=== PATIENT | female | born 1950 | race Caucasian/White ===

== ENCOUNTER 2016-11-06 07:59 | Inpatient (IN) | payer BC ==
[2016-10-16 11:28] VITALS: BMI 32.6
[2016-10-16 15:26] VITALS: BP_SYST 130; RESP 20; TEMP 99
[2016-11-06] VITALS (24 sets, daily range): BP systolic 112–177; RESP 13–20; TEMP 97.2–99.1; Ht 167.6 cm; Wt 80.7 kg
[~2016-11-06] VITALS: Ht 167.6 cm; Wt 80.7 kg
[2016-11-06] MEDS ORDERED: ROPIVACAINE 0.5% 139 MG, EPINEPHrine 1:1,000 0.2 MG, KETOROLAC INJ 30 MG, MORPHINE 10 MG SUBQ ONE ×4 (08:10)
[2016-11-06] MEDS ORDERED: CEFAZOLIN 2,000 MG in SODIUM CHLORIDE 0.9% 100 ML IV ONE (08:10)
[2016-11-06] MEDS ORDERED: LACT RINGERS 1,000 ML IV SCH ×2 (08:40→12:05)
[2016-11-06] MEDS ORDERED: MIDAZOLAM 2 MG/2 ML INJ IV ONE ×2 (08:40→10:15)
[2016-11-06] MEDS ORDERED: FAMOTIDINE 20 MG INJ IV ONE (08:40)
[2016-11-06] MEDS ORDERED: METOCLOPRAMIDE 10 MG/2 ML VIAL IV PUSH ONE (08:40)
[2016-11-06] MEDS ORDERED: GLYCOPYRROLATE 0.2 MG/ML VIAL IV ONE ×2 (08:40→13:42)
[2016-11-06] MEDS ORDERED: LIDOCAINE 1% BUFFERED 1 ML SYR INTRADERM PRN (08:40)
[2016-11-06] MEDS ORDERED: MEPERIDINE 25 MG/ML IV ONE (08:40)
[2016-11-06] MEDS ORDERED: MIDAZOLAM 2 MG/2 ML INJ ONE (10:03)
[2016-11-06] MEDS ORDERED: BUPIVACA/EPI 0.5% 50ML NERVEBLOCK ONE (11:12)
[2016-11-06] MEDS ORDERED: MEPERIDINE 25 MG/ML IV PRN (11:45)
[2016-11-06] MEDS ORDERED: ONDANSETRON 4 MG VIAL IV PRN ×2 (11:45→12:05)
[2016-11-06] MEDS ORDERED: MORPHINE 2 MG/ML SYR IV PRN ×2 (11:45→12:05)
[2016-11-06] MEDS ORDERED: ACETAMINOPHEN 1,000 MG/100 ML IV ONE ×2 (11:45→13:42)
[2016-11-06] MEDS ORDERED: MORPHINE 4 MG/ML SYR IV PRN ×2 (11:45→12:05)
[2016-11-06] MEDS ORDERED: OXYCODONE 5 MG TAB PO PRN (11:45)
[2016-11-06] MEDS ORDERED: ONDANSETRON 4 MG TAB PO PRN (12:05)
[2016-11-06] MEDS ORDERED: DEXTROSE 50% SYRINGE 50 ML IV PRN (12:05)
[2016-11-06] MEDS ORDERED: GLUCAGON 1 MG VIAL IM PRN (12:05)
[2016-11-06] MEDS ORDERED: SALINE FLUSH 10 ML FLUSH PRN (12:05)
[2016-11-06] MEDS ORDERED: MAG HYDROX 30 ML UDC PO PRN (12:05)
[2016-11-06] MEDS ORDERED: ZOLPIDEM 5 MG TAB PO PRN (12:05)
[2016-11-06] MEDS: DILAUDID 1 MG/ML AMP IV PRN ×2 (12:22→12:37)
[2016-11-06] MEDS ORDERED: NEOSTIGMINE 10 MG/10 ML VIAL IV ONE (13:42)
[2016-11-06] MEDS ORDERED: PROPOFOL 20 ML VIAL IV ONE (13:42)
[2016-11-06] MEDS ORDERED: ROCURONIUM 50 MG VIAL IV ONE (13:42)
[2016-11-06] MEDS ORDERED: ESMOLOL 100 MG/10 ML VL IV ONE (13:42)
[2016-11-06] MEDS ORDERED: LIDOCAINE 2% SYR 5 ML IV ONE (13:42)
[2016-11-06] MEDS ORDERED: FENTANYL 100 MCG/2 ML AMP IV ONE (13:42)
[2016-11-06] MEDS ORDERED: ONDANSETRON 4 MG VIAL IV PUSH ONE (13:42)
[2016-11-06] MEDS ORDERED: DEXAMETHASONE 4 MG/ML VIAL IV ONE (13:42)
[2016-11-06] MEDS ORDERED: BACITRACIN 50,000 UNITS INJ IRRIG ONE (13:49)
[2016-11-06] MEDS: KETOROLAC 30 MG/ML VIAL IV PRN (15:18)
[2016-11-06] MEDS: GABAPENTIN 300 MG CAP PO SCH ×2 (16:51→20:39)
[2016-11-06] MEDS: CEFAZOLIN 2,000 MG in SODIUM CHLORIDE 0.9% 100 ML IV SCH ×2 (16:52→22:10)
[2016-11-06] MEDS: SALINE FLUSH 10 ML FLUSH SCH (19:08)
[2016-11-06] MEDS: SENNA 8.6 MG TAB PO SCH (20:39)
[2016-11-06] MEDS: DOCUSATE SOD 100 MG CAP PO SCH (20:39)
[2016-11-06] MEDS: PANTOPRAZOLE 40 MG TAB PO SCH (20:39)
[2016-11-06] MEDS ORDERED: DOCUSATE SOD 100 MG CAP PO SCH (21:00)
[2016-11-07] MEDS: KETOROLAC 30 MG/ML VIAL IV PRN ×4 (02:36→22:38)
[2016-11-07 03:00] VITALS: BP_SYST 115; RESP 16; TEMP 99.1
[2016-11-07] MEDS: CEFAZOLIN 2,000 MG in SODIUM CHLORIDE 0.9% 100 ML IV SCH ×2 (03:55→09:28)
[2016-11-07] MEDS: FONDAPARINUX 2.5 MG SYR SUBQ SCH (05:17)
[2016-11-07] MEDS: SODIUM CHLORIDE 0.9% FLUSH BAG 500 ML IV SCH (05:36)
[2016-11-07 07:28] VITALS: BP_SYST 102; RESP 18; TEMP 98.1
[2016-11-07] MEDS: SENNA 8.6 MG TAB PO SCH ×2 (08:11→20:19)
[2016-11-07] MEDS: GABAPENTIN 300 MG CAP PO SCH ×3 (08:11→20:19)
[2016-11-07] MEDS: ANASTROZOLE 1 MG TAB PO SCH (08:11)
[2016-11-07] MEDS: PANTOPRAZOLE 40 MG TAB PO SCH ×2 (08:11→20:19)
[2016-11-07] MEDS: MAG HYDROX 30 ML UDC PO SCH ×2 (08:12→20:19)
[2016-11-07] MEDS: DOCUSATE SOD 100 MG CAP PO SCH ×2 (08:12→20:19)
[2016-11-07] MEDS: POLYETHYLENE GLYCOL 17 GM PACKET PO SCH (08:12)
[2016-11-07] MEDS: MULTIVITS/MINERALS (THERAGRAN M) TAB PO SCH (08:16)
[2016-11-07] MEDS: LEVEMIR INSULIN SUBQ SCH (08:17)
[2016-11-07] MEDS: SALINE FLUSH 10 ML FLUSH SCH ×2 (08:18→20:19)
[2016-11-07 11:00] VITALS: BP_SYST 108; BP_SYST 122; RESP 18; TEMP 97.5; TEMP 98.9
[2016-11-07 15:00] VITALS: BP_SYST 140; RESP 18; TEMP 99.1
[2016-11-07] MEDS ORDERED: FLEET ENEMA 132 ML BTL RECTAL PRN (15:15)
[2016-11-07] MEDS ORDERED: BISACODYL 10 MG SUPP RECTAL PRN (15:15)
[2016-11-07 20:39] VITALS: BP_SYST 109; RESP 18; TEMP 98.1
[2016-11-07 23:25] VITALS: BP_SYST 121; RESP 18; TEMP 98.7
[2016-11-08] VITALS (9 sets, daily range): BP systolic 98–118; RESP 14–18; TEMP 98.5–99
[2016-11-08] MEDS: SODIUM CHLORIDE 0.9% FLUSH BAG 500 ML IV SCH (05:56)
[2016-11-08] MEDS: FONDAPARINUX 2.5 MG SYR SUBQ SCH (06:24)
[2016-11-08] MEDS: LEVEMIR INSULIN SUBQ SCH (07:57)
[2016-11-08] MEDS: MULTIVITS/MINERALS (THERAGRAN M) TAB PO SCH (08:00)
[2016-11-08] MEDS: MAG HYDROX 30 ML UDC PO SCH ×3 (08:00→20:00)
[2016-11-08] MEDS: GABAPENTIN 300 MG CAP PO SCH ×3 (08:00→21:09)
[2016-11-08] MEDS: ANASTROZOLE 1 MG TAB PO SCH (08:00)
[2016-11-08] MEDS: DOCUSATE SOD 100 MG CAP PO SCH ×2 (08:00→21:00)
[2016-11-08] MEDS: PANTOPRAZOLE 40 MG TAB PO SCH ×2 (08:01→21:00)
[2016-11-08] MEDS: SENNA 8.6 MG TAB PO SCH ×2 (08:01→21:00)
[2016-11-08] MEDS: POLYETHYLENE GLYCOL 17 GM PACKET PO SCH (08:01)
[2016-11-08] MEDS: SALINE FLUSH 10 ML FLUSH SCH ×2 (08:06→21:11)
[2016-11-08] MEDS: KETOROLAC 30 MG/ML VIAL IV PRN ×2 (12:11→18:12)
[2016-11-08] MEDS ORDERED: MISSING DOSE XX ONE (15:40)
[2016-11-09 04:10] VITALS: BP_SYST 102; RESP 16; TEMP 98.6
[2016-11-09] MEDS: SODIUM CHLORIDE 0.9% FLUSH BAG 500 ML IV SCH (06:00)
[2016-11-09] MEDS: FONDAPARINUX 2.5 MG SYR SUBQ SCH (06:33)
[2016-11-09] MEDS: MAG HYDROX 30 ML UDC PO SCH (07:57)
[2016-11-09] MEDS: SALINE FLUSH 10 ML FLUSH SCH (07:57)
[2016-11-09] MEDS: ANASTROZOLE 1 MG TAB PO SCH (08:00)
[2016-11-09] MEDS ORDERED: LEVEMIR INSULIN SUBQ SCH (08:00)
[2016-11-09] MEDS: PANTOPRAZOLE 40 MG TAB PO SCH (08:01)
[2016-11-09] MEDS: MULTIVITS/MINERALS (THERAGRAN M) TAB PO SCH (08:01)
[2016-11-09] MEDS: GABAPENTIN 300 MG CAP PO SCH ×2 (08:01→18:25)
[2016-11-09] MEDS: SENNA 8.6 MG TAB PO SCH (08:02)
[2016-11-09] MEDS: DOCUSATE SOD 100 MG CAP PO SCH (08:02)
[2016-11-09] MEDS: POLYETHYLENE GLYCOL 17 GM PACKET PO SCH (08:02)
[2016-11-09 08:15] VITALS: BP_SYST 98; RESP 16; TEMP 98.5
[2016-11-09 11:50] VITALS: BP_SYST 124; RESP 18; TEMP 99
[2016-11-09] MEDS: KETOROLAC 30 MG/ML VIAL IV PRN (12:08)
[2016-11-09 16:03] VITALS: BP_SYST 132; RESP 18; TEMP 98.7
[2016-11-09 17:43] VITALS: BP_SYST 132; RESP 18; TEMP 98.7
[2016-11-10] MEDS ORDERED: ANASTROZOLE 1 MG TAB PO SCH (09:00)
== END 2016-11-09 18:31 | disposition home health service (06) | DRG 470 ==
LOC: SDS 07:59 → ENPENDDIS 07:59 → 2NO 13:27 → UNDODISIN 11-09 17:58
PROVIDERS: ADMIT Internal Medicine; ATTEND Internal Medicine
PROC: 3E0T3BZ Introduction of Anesthetic Agent into Peripheral Nerves and Plexi, Percutaneous Approach (ICD-10-PCS; 2016-11-06)
PROC: 0SRD0J9 Replacement of Left Knee Joint with Synthetic Substitute, Cemented, Open Approach (ICD-10-PCS; principal; 2016-11-06 09:36)
DX: M17.12 Unilateral primary osteoarthritis, left knee (principal); E11.9 Type 2 diabetes mellitus without complications; Z79.4 Long term (current) use of insulin; Z86.718 Personal history of other venous thrombosis and embolism; Z79.01 Long term (current) use of anticoagulants; Z85.3 Personal history of malignant neoplasm of breast
CPT/HCPCS: 80048; 82947; 85014; 85018; 85025; 85610; 85730; 86850; 86900; 86901; 94799